=== PATIENT | male | born 1970 | race Caucasian/White ===

== ENCOUNTER → 2024-10-19 07:50 | Outpatient (CLI) | payer OTHER, SELFPAY ==
--- NOTE | 2024-10-19 07:52 | DI.MRI.S_ITS ---
PROCEDURE: MR LUMBAR SPINE WO CON INDICATIONS: EXACERBATION OF CHROINIC LBP W/RT RADICULOPATHY TECHNIQUE: Noncontrast sagittal T1 spin echo and T2 fast echo, sagittal STIR, and T2 fast spin echo through the lumbar spine. In cases with scoliosis, additional coronal T2 fast spin echo may be performed. COMPARISON: [facility], CR, XR LUMBAR SPINE LAT FL EX 3VW, 10/01/2016, 14:47. [facility], MR, L-SPINE WITHOUT CONTRAST, 01/13/2016, 7:10. FINDINGS: Image quality: Diagnostic, with note made of motion artifact. Alignment and Curvature: There is minimal retrolisthesis at L1-L2, with minimal anterolisthesis at L5-S1. Bone Marrow: Marrow is of normal overall signal. No acute vertebral body compression fractures. Spinal Cord: Conus medullaris terminates at the L1 level. Visualized cord demonstrates normal signal and size. Paraspinous Soft Tissues: No paravertebral masses. T12-L1: Normal appearance. L1-L2: Mild loss of disc height is seen. Loss of disc signal is seen. Mild generalized disc bulge is seen. There is a superimposed central disc osteophyte protrusion. Mild facet joint hypertrophy is seen. There is [id number] bilateral neural foraminal narrowing seen. Moderate central canal narrowing is seen. These imaging findings have progressed compared to the prior study. L2-L3: The disc height is well-preserved. Loss of disc signal is seen at this level. Mild generalized disc bulge is seen. No significant neural foraminal or central canal narrowing can be seen. L3-L4: The disc height and disk signal are relatively well-preserved. Mild generalized disc bulge is seen. There is a superimposed central disc protrusion. There is a focal annular fissure seen posteriorly. Mild to moderate facet hypertrophy is seen. Mild to moderate bilateral neural foraminal narrowing can be seen. Mild central canal narrowing is seen. These imaging findings have progressed compared to the prior study. L4-L5: The disc height is well-preserved. Loss of disc signal is seen at this level. Mild to moderate disc bulge is seen, with a central disc protrusion. There is a focal annular fissure seen posteriorly. Mild to moderate facet hypertrophy is seen. Moderate bilateral neural foraminal narrowing is seen. Mild central canal narrowing is seen. These degenerative changes are mildly worse than in 2016. L5-S1: Moderate loss of disc height is seen. Loss of disc signal is seen. Mild to moderate facet hypertrophy is seen. No significant neural foraminal or central canal narrowing can be seen. These imaging findings have progressed compared to the prior study. IMPRESSION: Multiple levels of lumbar spine degenerative change can be seen, which have progressed compared to 2016. Dictated by: Jose Springer M.D. on 10/19/2024 at 11:07 Approved by: Jose Springer M.D. on 10/19/2024 at 11:12
== END ==
PROVIDERS: PCP Family Medicine; Referring Provider Family Medicine; Visit Provider Family Medicine
DX: M47.26 Other spondylosis with radiculopathy, lumbar region (principal); M47.27 Other spondylosis with radiculopathy, lumbosacral region
CPT/HCPCS: 72148